=== PATIENT | female | born 1935 | race Caucasian/White ===

== ENCOUNTER 2020-12-16 15:40 | Inpatient (IN) | payer BC ==
[~2020-12-16] VITALS: Ht 165.1 cm; Wt 99.9 kg
[2020-12-16] MEDS ORDERED: DILTIAZEM (15:43)
[2020-12-16] MEDS ORDERED: LASIX (15:43)
[2020-12-16] MEDS ORDERED: ALBUTEROL (15:43)
[2020-12-16] MEDS ORDERED: PRADAXA (15:43)
[2020-12-16] MEDS ORDERED: NITROGLYCERIN 0.4MG TABLET SL SL PRN (16:30)
[2020-12-16] MEDS ORDERED: SODIUM CHLORIDE 0.9% 1,000 ML IV ONE (16:30)
[2020-12-16] MEDS ORDERED: ASPIRIN 81MG TABLET PO ONE (16:30)
[2020-12-16 18:30] LABS: BASOPHILS % 0.6 % (0.0-2.0); EOSINOPHILS % 2.3 % (0.0-5.0); HEMATOCRIT. 38.8 % (36.0-48.0); LYMPHOCYTES % 22.8 % (20.0-50.0); MEAN CORPUSCULAR HEMOGLOBIN 32.4 pg (28.0-32.0); MEAN CORPUSCULAR VOLUME 96.9 fL (81.0-99.0); MEAN PLATELET VOLUME 7.6 fl (7.4-10.4); MONOCYTES % 9.3 % (2.0-8.0); PLATELET 238 x1000/uL (130-400)
[2020-12-16 18:39] LABS: CHLORIDE 111 mEq/L (98-107)
[2020-12-16 18:42] LABS: D-DIMER 0.87 mg/L FEU (<0.50); INR 1.1; PARTIAL THROMBOPLASTIN TIME 27.4 sec (23.4-31.0); PROTHROMBIN TIME 11.5 sec (9.6-11.0)
[2020-12-16] MEDS ORDERED: ACETAMINOPHEN 325MG TABLET PO PRN (22:45)
[2020-12-16] MEDS ORDERED: CLONIDINE 0.1MG TABLET PO PRN (22:45)
[2020-12-16] MEDS ORDERED: MAGNESIUM/ALUMINUM HYDROXIDE/SIMETHICONE 30ML UDC PO PRN (22:45)
[2020-12-16] MEDS ORDERED: HYDRALAZINE 20MG/ML VIAL IV PRN (22:45)
[2020-12-16] MEDS ORDERED: ONDANSETRON HCL 4MG/2ML INJ IV PRN (22:45)
[2020-12-16] MEDS ORDERED: LORAZEPAM 2MG/ML CPJ IV PRN (22:45)
[2020-12-16] MEDS ORDERED: DIPHENHYDRAMINE 50MG/ML VIAL IV PRN (22:45)
[2020-12-16] MEDS ORDERED: MORPHINE SULFATE 2 MG/ML CPJ (NOT FOR IM USE) IV PRN (22:45)
[2020-12-16] MEDS ORDERED: HYDROCODONE/ACETAMINOPHEN 5/325MG TABLET PO PRN (22:45)
[2020-12-16] MEDS ORDERED: NALOXONE HCL 0.4MG/ML VIAL IV PRN (22:45)
[2020-12-16] MEDS ORDERED: IPRATROPIUM/ALBUTEROL 0.5-3(2.5)MG/3ML NEB HHN PRN (22:45)
[2020-12-16] MEDS: ENOXAPARIN 80MG/0.8ML SYR SUBCUT SCH (23:21)
[2020-12-16] MEDS ORDERED: IOHEXOL-350 100 ML BOTTLE ONE (23:41)
[2020-12-17 01:59] VITALS: BP 146/80
[2020-12-17 04:00] VITALS: BP 125/47
[2020-12-17] MEDS ORDERED: PRED-276 PO (04:28)
[2020-12-17] MEDS ORDERED: NITR0.4T SL (04:28)
[2020-12-17] MEDS ORDERED: DILT120T13 PO (04:28)
[2020-12-17] MEDS ORDERED: POTA20TA82 PO (04:28)
[2020-12-17] MEDS ORDERED: ESCI-7 PO (04:28)
[2020-12-17] MEDS ORDERED: PRAV10TA35 PO (04:28)
[2020-12-17] MEDS ORDERED: PANT40TA51 PO (04:28)
[2020-12-17] MEDS: SODIUM CHLORIDE 0.9% INJ 3ML FLUSH IVF SCH ×3 (06:21→22:19)
[2020-12-17 06:26] LABS: BASOPHILS % 0.7 % (0.0-2.0); EOSINOPHILS % 2.2 % (0.0-5.0); HEMATOCRIT. 38.7 % (36.0-48.0); HEMOGLOBIN. 12.7 g/dL (12.0-16.0); LYMPHOCYTES % 24.4 % (20.0-50.0); MEAN CORPUSCULAR HEMOGLOBIN 31.8 pg (28.0-32.0); MEAN CORPUSCULAR VOLUME 96.4 fL (81.0-99.0); MEAN PLATELET VOLUME 7.9 fl (7.4-10.4); MONOCYTES % 8.2 % (2.0-8.0); NEUTROPHILS % 64.5 % (40.0-76.0); PLATELET 251 x1000/uL (130-400); RED BLOOD CELL COUNT 4.01 mill/uL (4.2-5.4); RED CELL DISTRIBUTION WIDTH 13.3 % (11.6-14.6)
[2020-12-17 06:31] LABS: CHLORIDE 109 mEq/L (98-107)
[2020-12-17 06:40] LABS: CREATINE KINASE 89 IU/L (26-192)
[2020-12-17 06:43] LABS: CREATINE KINASE MB FRACTION < 1.0 ng/mL (0.5-3.6)
[2020-12-17 08:00] VITALS: BP 110/62
[2020-12-17] MEDS: ENOXAPARIN 80MG/0.8ML SYR SUBCUT SCH (09:02)
[2020-12-17] MEDS: DOCUSATE SODIUM 100MG CAPSULE PO PRN (10:58)
[2020-12-17 12:00] VITALS: BP_SYST 113; BP_SYST 139; BP_DIAS 54; BP_DIAS 62
[2020-12-17] MEDS: DILTIAZEM HCL 120MG CAPSULE CD 24HR PO SCH (15:30)
[2020-12-17 16:00] VITALS: BP 109/54
[2020-12-17 18:41] LABS: CREATINE KINASE 162 IU/L (26-192)
[2020-12-17 18:43] LABS: CREATINE KINASE MB FRACTION 1.6 ng/mL (0.5-3.6)
[2020-12-17 20:00] VITALS: BP 132/58
[2020-12-17] MEDS: ENOXAPARIN 100MG/ML SYR SUBCUT SCH (21:00)
[2020-12-18] VITALS: BP 107/40
[2020-12-18 04:00] VITALS: BP 112/52
[2020-12-18] MEDS: SODIUM CHLORIDE 0.9% INJ 3ML FLUSH IVF SCH ×3 (05:53→20:17)
[2020-12-18 08:00] VITALS: BP 113/64
[2020-12-18] MEDS: ASPIRIN 81MG EC TABLET PO SCH (08:58)
[2020-12-18] MEDS: ENOXAPARIN 100MG/ML SYR SUBCUT SCH ×2 (08:58→20:16)
[2020-12-18] MEDS: DILTIAZEM HCL 120MG CAPSULE CD 24HR PO SCH ×2 (08:58→20:17)
[2020-12-18] MEDS: DOCUSATE SODIUM 100MG CAPSULE PO PRN (08:58)
[2020-12-18 12:00] VITALS: BP 114/47
[2020-12-18] MEDS ORDERED: NA PHOS,M-B/NA PHOS,DI-BA ENEMA 118ML PR NR (12:00)
[2020-12-18 16:00] VITALS: BP 113/65
[2020-12-18] MEDS: FUROSEMIDE 40MG TABLET PO SCH (18:05)
[2020-12-18 20:00] VITALS: BP 135/61
[2020-12-18] MEDS ORDERED: METOPROLOL TARTRATE 25MG TABLET PO SCH (21:00)
[2020-12-19] VITALS: BP 132/43
[2020-12-19] MEDS: GUAIFENESIN 200MG/10ML SUGAR FREE UDC PO PRN ×2 (00:25→12:51)
[2020-12-19 04:00] VITALS: BP 124/46
[2020-12-19] MEDS: SODIUM CHLORIDE 0.9% INJ 3ML FLUSH IVF SCH ×2 (05:02→14:00)
[2020-12-19 08:00] VITALS: BP 134/52
[2020-12-19] MEDS: FUROSEMIDE 40MG TABLET PO SCH (08:40)
[2020-12-19] MEDS: ASPIRIN 81MG EC TABLET PO SCH (08:40)
[2020-12-19] MEDS: ENOXAPARIN 100MG/ML SYR SUBCUT SCH (08:40)
[2020-12-19] MEDS: DILTIAZEM HCL 120MG CAPSULE CD 24HR PO SCH (08:41)
[2020-12-19 10:17] LABS: CHLORIDE 108 mEq/L (98-107)
[2020-12-19 10:24] LABS: BASOPHILS % 0.7 % (0.0-2.0); EOSINOPHILS % 4.3 % (0.0-5.0); HEMATOCRIT. 34.5 % (36.0-48.0); LDL CHOLESTEROL 96 mg/dL (5-100); LYMPHOCYTES % 24.4 % (20.0-50.0); MEAN CORPUSCULAR HEMOGLOBIN 33.3 pg (28.0-32.0); MEAN CORPUSCULAR VOLUME 95.9 fL (81.0-99.0); MEAN PLATELET VOLUME 7.8 fl (7.4-10.4); MONOCYTES % 7.6 % (2.0-8.0); PLATELET 222 x1000/uL (130-400); RED CELL DISTRIBUTION WIDTH 12.7 % (11.6-14.6)
[2020-12-19 10:25] LABS: HDL CHOLESTEROL 59 mg/dL (40-59)
[2020-12-19 12:00] VITALS: BP 143/62
[2020-12-19 12:39] LABS: BASOPHILS % 0.5 % (0.0-2.0); EOSINOPHILS % 4.1 % (0.0-5.0); HEMATOCRIT. 34.6 % (36.0-48.0); HEMOGLOBIN. 12.3 g/dL (12.0-16.0); LYMPHOCYTES % 22.6 % (20.0-50.0); MEAN CORPUSCULAR HEMOGLOBIN 33.8 pg (28.0-32.0); MEAN CORPUSCULAR VOLUME 95.1 fL (81.0-99.0); MEAN PLATELET VOLUME 7.4 fl (7.4-10.4); MONOCYTES % 11.2 % (2.0-8.0); NEUTROPHILS % 61.6 % (40.0-76.0); PLATELET 221 x1000/uL (130-400); RED BLOOD CELL COUNT 3.64 mill/uL (4.2-5.4); RED CELL DISTRIBUTION WIDTH 13.2 % (11.6-14.6)
[2020-12-19 15:23] VITALS: BP 143/62
== END 2020-12-19 16:55 | disposition home or self-care (01) | DRG 74 ==
LOC: ER 15:40 → 7EST 19:00 → EDBEDREQTM 19:12 → EDBEDREQ 19:12 → ENRESERV 20:52
PROVIDERS: ADMIT Internal Medicine; ATTEND Internal Medicine
DX: G90.8 Other disorders of autonomic nervous system (principal); E46 Unspecified protein-calorie malnutrition; M94.0 Chondrocostal junction syndrome [Tietze]; K21.9 Gastro-esophageal reflux disease without esophagitis; I25.10 Atherosclerotic heart disease of native coronary artery without angina pectoris; E11.51 Type 2 diabetes mellitus with diabetic peripheral angiopathy without gangrene; E66.01 Morbid (severe) obesity due to excess calories; E78.5 Hyperlipidemia, unspecified; F32.9 Major depressive disorder, single episode, unspecified; I48.91 Unspecified atrial fibrillation; I11.9 Hypertensive heart disease without heart failure; I65.22 Occlusion and stenosis of left carotid artery; J45.909 Unspecified asthma, uncomplicated; Z86.73 Personal history of transient ischemic attack (TIA), and cerebral infarction without residual deficits; Z95.5 Presence of coronary angioplasty implant and graft; I25.2 Old myocardial infarction; Z68.36 Body mass index [BMI] 36.0-36.9, adult; Z79.899 Other long term (current) drug therapy; Z88.8 Allergy status to other drugs, medicaments and biological substances; S81.802A Unspecified open wound, left lower leg, initial encounter; S81.801A Unspecified open wound, right lower leg, initial encounter
CPT/HCPCS: 36415; 71045; 71275; 80053; 80061; 82550; 82553; 82962; 83735; 83880; 84443; 84484; 85025; 85379; 93005; 93306; 93880; 93923; 93970; 99285; J1650; J7030; Q9967